=== PATIENT | female | born 2000 | race Caucasian/White ===

== ENCOUNTER 2018-05-06 18:04 | Emergency (ER) | payer SELFPAY ==
[~2018-05-06] VITALS: Ht 157.5 cm; Wt 77.0 kg
[2018-05-06] MEDS ORDERED: SODIUM CHLORIDE 0.9% 1,000 ML IV ONE (19:59)
[2018-05-06] MEDS ORDERED: ACETAMINOPHEN 325MG TABLET PO ONE (20:15)
[2018-05-06 20:38] LABS: CLARITY URINE CLEAR (CLEAR); COLOR URINE YELLOW (YELLOW); KETONES URINE NEGATIVE (NEGATIVE); LEUKOCYTE ESTERASE URINE NEGATIVE (NEGATIVE); NITRITE URINE NEGATIVE (NEGATIVE); OCCULT BLOOD URINE 3+ (NEGATIVE); PH URINE 8.5 (4.5-8.0); PROTEIN URINE NEGATIVE (NEGATIVE); SPECIFIC GRAVITY URINE 1.021 (1.005-1.030); UROBILINOGEN URINE 0.2 E.U./dL (0.2-1.0)
[2018-05-06 21:23] LABS: BASOPHILS % 0.9 % (0.0-2.0); EOSINOPHILS % 1.4 % (0.0-5.0); HEMATOCRIT. 40.3 % (36.0-48.0); HEMOGLOBIN. 13.6 g/dL (12.0-16.0); LYMPHOCYTES % 17.9 % (20.0-50.0); MEAN CORPUSCULAR VOLUME 94.5 fL (81.0-99.0); MEAN PLATELET VOLUME 9.6 fl (7.4-10.4); MONOCYTES % 9.7 % (2.0-8.0); NEUTROPHILS % 70.1 % (40.0-76.0); PLATELET 294 x1000/uL (130-400); RED BLOOD CELL COUNT 4.26 mill/uL (4.2-5.4); RED CELL DISTRIBUTION WIDTH 12.7 % (11.6-14.6)
[2018-05-06 21:28] LABS: CHLORIDE 107 mEq/L (98-107)
[2018-05-06 21:50] LABS: B-HCG QUANTITATIVE 4791 mIU/mL (<3)
[2018-05-07 01:58] VITALS: BP 102/59
== END 2018-05-07 01:58 | disposition home or self-care (01) ==
LOC: ER 18:04
DX: O03.9 Complete or unspecified spontaneous abortion without complication (principal)
CPT/HCPCS: 36415; 76801; 76817; 80048; 81003; 81025; 84702; 85025; 86850; 86900; 86901; 87086; 99284; J7030